=== PATIENT | female | born 1945 | race African-American/Black ===

== ENCOUNTER 2016-09-04 11:30 | Emergency (ER) | payer MEDICARE, OTHER ==
[~2016-09-04] VITALS: Ht 162.6 cm; Wt 66.0 kg
[~2016-09-04 11:30] MED LIST: ASPI81TA82 PO; BENI40TA31 PO; EZET10 PO; METO25 PO; TAB-TAB PO; VITA200017 PO
[2016-09-04 11:32] VITALS: BP 149/82; PULSE 82; RESP 14; TEMP 97.5; O2SAT 96
[2016-09-04] MEDS ORDERED: SODIUM CHLORIDE 0.9% FLUSH 5 ML FLUSH IVF PRN (12:00)
[2016-09-04] MEDS ORDERED: METO25TA3 PO ×2 (12:03→12:04)
[2016-09-04] MEDS ORDERED: BENI40TA7 PO (12:03)
[2016-09-04] MEDS ORDERED: MULT1CHW70 (12:05)
[2016-09-04] MEDS ORDERED: ZETI10TA5 PO (12:05)
[2016-09-04] MEDS ORDERED: FERR1TAB58 PO (12:06)
[2016-09-04] MEDS ORDERED: VITA100064 PO (12:06)
[2016-09-04 12:07] VITALS: O2SAT 97
--- NOTE | 2016-09-04 12:36 | PD ---
HPI Chief Complaint: Syncope/Near-Syncope Time Seen by Provider: 12:29 Travel History International Travel<30 days: No Contact w/Intl Traveler<30days: No Traveled to known affect area: No History of Present Illness HPI 70-year-old female with history of brain tumors status post resection currently following up with [facility] in [place], hypertension, high cholesterol, presents to the ER today sent in by Dr. Blanco. Patient states that she has been having several days' history of dizziness and unsteadiness, had a near syncopal episode in the bathroom today. She denies any chest pains, shortness of breath, fevers, vomiting, or other symptoms. She states she has some underlying headache several days ago which she has had before. She states that she had talked to [facility] in [place] and was told that she should come to see them but that she needed cardiac clearance. Dr. Blanco would be the one to give her cardiac clearance and had told her to come to the ER to be evaluated for cardiac issues. Modifying Factors: None Associated Signs & Symptoms: Dizziness, unsteadiness, near-syncope Risk Factors: History of brain tumor PFSH Past Medical History Hx Anticoagulant Therapy: Yes Heart Rhythm Problems: No Cancer: No Cardiac Catheterization: No Cardiovascular Problems: Yes High Cholesterol: Yes Congestive Heart Failure: No Diabetes: No Diminished Hearing: Yes (right ear) Endocrine: No Genitourinary: No Hypertension: Yes Immune Disorder: No Implanted Vascular Access Dvce: Yes Musculoskeletal: No Neurologic: No Reproductive: No Respiratory: No Menopausal: Yes Past Surgical History Appendectomy: Yes Body Medical Devices: R VOCAL CORD Coronary Artery Bypass Graft: No Eye Surgery: Yes (lasik eye surgery) Hysterectomy: Yes Joint Replacement: Yes (right knee) Neurologic Surgery: Yes (GROWTH ON NECK INTO HEAD REMOVED) Pacemaker: No Other Surgery: Yes (glomerus tumor removal brain, voice implant and right inner ear) Family History Family Myocardial Infarction: Yes Social History Alcohol Use: No Tobacco Use: No Substance Use: No Allergies-Medications (Allergen,Severity, Reaction): Coded Allergies: No Known Allergies (Unverified , 09/04/16) Reported Meds & Prescriptions Reported Meds & Active Scripts Active Reported Vitamin D (Cholecalciferol) 1,000 Unit Tab 2,000 Units PO DAILY Iron (Ferrous Sulfate) 50 Mg Tab 65 Mg PO DAILY Multivitamin Adult (Multiple Vitamins W/ Minerals) 1 Chw Chw Zetia (Ezetimibe) 10 Mg Tab 10 Mg PO DAILY Metoprolol Tartrate 25 Mg Tab 25 Mg PO DAILY Metoprolol Tartrate 25 Mg Tab 25 Mg PO DAILY Review of Systems Except as stated in HPI: all other systems reviewed are Neg Physical Exam Narrative GENERAL: Well-nourished, well-developed elderly -[place] female patient in no acute distress at rest. Awake and oriented 3. SKIN: Warm and dry. HEAD: Normocephalic. EYES: No scleral icterus. No injection or drainage. NECK: Supple, trachea midline. CARDIOVASCULAR: Regular rate and rhythm without murmurs, gallops, or rubs. RESPIRATORY: Breath sounds equal bilaterally. No accessory muscle use. GASTROINTESTINAL: Abdomen soft, non-tender, nondistended. MUSCULOSKELETAL: No cyanosis, or edema. BACK: Nontender without obvious deformity. No CVA tenderness. Neuro: Patient has obvious right facial droop. She is able to talk normally. Awake, alert, oriented 3. Moving all 4 extremities. Data Data Last Documented VS Vital Signs Date Time Temp Pulse Resp B/P Pulse Ox O2 Delivery O2 Flow Rate FiO2 09/04/16 12:07 97 Room Air 09/04/16 11:59 64 20 09/04/16 11:32 97.5 149/82 Orders Electrocardiogram (09/04/16 11:59) Complete Blood Count With Diff (09/04/16 11:59) Comprehensive Metabolic Panel (09/04/16 11:59) Magnesium (Mg) (09/04/16 11:59) Ckmb (Isoenzyme) Profile (09/04/16 11:59) Troponin I (09/04/16 11:59) Act Partial Throm Time (Ptt) (09/04/16 11:59) Prothrombin Time / Inr (Pt) (09/04/16 11:59) Chest, Single Ap (09/04/16 11:59) Ct Brain W/O Iv Contrast(Rout) (09/04/16 11:59) Ecg Monitoring (09/04/16 11:59) Iv Access Insert/Monitor (09/04/16 11:59) Oximetry (09/04/16 11:59) Sodium Chloride 0.9% Flush (Ns Flush) (09/04/16 12:00) Urinalysis - C+S If Indicated (09/04/16 12:29) CKMB (09/04/16 12:11) CKMB% (09/04/16 12:11) Labs Laboratory Tests Test 09/04/16 09/04/16 12:11 13:20 White Blood Count 5.4 TH/MM3 Red Blood Count 5.02 MIL/MM3 Hemoglobin 14.8 GM/DL Hematocrit 44.1 % Mean Corpuscular Volume 87.7 FL Mean Corpuscular Hemoglobin 29.4 PG Mean Corpuscular Hemoglobin 33.5 % Concent Red Cell Distribution Width 15.2 % Platelet Count 203 TH/MM3 Mean Platelet Volume 7.8 FL Neutrophils (%) (Auto) 79.7 % Lymphocytes (%) (Auto) 11.0 % Monocytes (%) (Auto) 8.2 % Eosinophils (%) (Auto) 0.4 % Basophils (%) (Auto) 0.7 % Neutrophils # (Auto) 4.3 TH/MM3 Lymphocytes # (Auto) 0.6 TH/MM3 Monocytes # (Auto) 0.4 TH/MM3 Eosinophils # (Auto) 0.0 TH/MM3 Basophils # (Auto) 0.0 TH/MM3 CBC Comment DIFF FINAL Differential Comment Prothrombin Time 10.7 SEC Prothromb Time International 1.0 RATIO Ratio Activated Partial 24.3 SEC Thromboplast Time Sodium Level 139 MEQ/L Potassium Level 4.1 MEQ/L Chloride Level 104 MEQ/L Carbon Dioxide Level 29.0 MEQ/L Anion Gap 6 MEQ/L Blood Urea Nitrogen 8 MG/DL Creatinine 0.68 MG/DL Estimat Glomerular Filtration 103 ML/MIN Rate Random Glucose 90 MG/DL Calcium Level 9.3 MG/DL Magnesium Level 2.3 MG/DL Total Bilirubin 0.4 MG/DL Aspartate Amino Transf 26 U/L (AST/SGOT) Alanine Aminotransferase 28 U/L (ALT/SGPT) Alkaline Phosphatase 70 U/L Total Creatine Kinase 146 U/L Creatine Kinase MB 1.7 NG/ML Troponin I LESS THAN 0.02 NG/ML Total Protein 6.6 GM/DL Albumin 3.5 GM/DL Urine Color LIGHT-YELLOW Urine Turbidity CLEAR Urine pH 6.5 Urine Specific [place] 1.003 Urine Protein NEG mg/dL Urine Glucose (UA) NEG mg/dL Urine Ketones NEG mg/dL Urine Occult Blood NEG Urine Nitrite NEG Urine Bilirubin NEG Urine Urobilinogen LESS THAN 2.0 MG/DL Urine Leukocyte Esterase NEG Urine WBC LESS THAN 1 /hpf Microscopic Urinalysis Comment CULT NOT INDICATED MDM Medical Decision Making Medical Screen Exam Complete: Yes Emergency Medical Condition: Yes Medical Record Reviewed: Yes Interpretation(s) EKG shows NSR, no ST elevation or depression, and no arrhythmias. No significant T-wave inversions. 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 Effacement of the right side of the brainstem and alex from extra-axial mass effect. No evidence of acute infarct, hemorrhage, intra- axial mass or edema. Right-sided mastoidectomy defect presumably from previous tumor resection. Christopher Ramsey MD Chest X-Ray 09/04/16 1153 Signed Impressions: Service Date/Time: Sunday, September 04, 2016 12:27 - CONCLUSION: No acute disease. Christopher Ramsey MD Differential Diagnosis Dizziness, near syncopeacute intracranial processes such as ICH versus enlarging tumor versus dysrhythmias versus metabolic issues versus dehydration Narrative Course Patient is fairly asymptomatic in the ER. She has no new focal neurological deficits according to her. She has no chest pains currently. Lab work did not indicate any significant signs of metabolic issues or dehydration. Her cardiac enzymes are negative. EKG did not show any signs of acute ST-T changes. CT of the brain shows the brain tumor but did not reveal any signs of acute hemorrhage , stroke, or any signs of acute processes. At this point, I have talked to the patient regarding findings and she states that what she really needs is cardiac clearance to go back to [facility] for follow-up with her brain tumor issues. She does not want any treatment for her brain tumors here at this hospital because she already has ongoing follow-up care at [facility]. The findings and the case was discussed with Dr. Blanco who knows her well, and has sent her in today, and he states that she can follow-up in his office on the for further clearance. I have relayed the findings and Dr. Blanco recommendation with the patient. She states understanding and is comfortable with following up as an outpatient. She should return for any worsening in symptoms. Diagnosis Primary Impression: Near syncope Referrals: Kenneth Blanco MD Disposition: 01 DISCHARGE HOME Condition: Stable Jesus King MD Sep 04, 2016 12:36
[2016-09-04 12:45] LABS: AUTOMATED NEUTROPHIL # 4.3 TH/MM3 (1.8-7.7); BASOPHIL % 0.7 % (0.0-2.0); EOSINOPHIL % 0.4 % (0.0-4.0); HEMATOCRIT 44.1 % (35.0-46.0); HEMO FLAGS DIFF FINAL; LYMPHOCYTE # 0.6 TH/MM3 (1.0-4.8); MEAN CELL VOLUME 87.7 FL (80.0-100.0); MEAN CORPUSCULAR HEMOGLOBIN 29.4 PG (27.0-34.0); MEAN CORPUSCULAR HGB CONC 33.5 % (32.0-36.0); MONO % 8.2 % (0.0-8.0); NEUT % 79.7 % (16.0-70.0); PLATELET COUNT 203 TH/MM3 (150-450); RED BLOOD COUNT 5.02 MIL/MM3 (4.00-5.30); RED CELL DISTRIBUTION WIDTH 15.2 % (11.6-17.2); WHITE BLOOD COUNT 5.4 TH/MM3 (4.0-11.0)
--- NOTE | 2016-09-04 13:17 | RADRPT ---
EXAM DATE/TIME: 09/04/2016 12:40 [facility] COMPARISON: No previous studies available for comparison. INDICATIONS : Syncopal episode. RADIATION DOSE: 56.35 CTDIvol (mGy) MEDICAL HISTORY : Hypertension. Cardiovascular disease Brain tumor. SURGICAL HISTORY : None. ENCOUNTER: Initial ACUITY: 1 day PAIN SCALE: 0/10 LOCATION: cranial TECHNIQUE: Multiple contiguous axial images were obtained of the head. Using automated exposure control and adj ustment of the mA and/or kV according to patient size, radiation dose was kept as low as reasonably a chievable to obtain optimal diagnostic quality images. FINDINGS: A large bony destructive mass containing dense calcific deposits is identified at the base of the sku ll on the right eroding and destroying the right temporal bone and partially eroding the clivus.. The re is intracranial extension of mass into the posterior fossa which extends superiorly along the cere bellopontine angle cistern. A large mastoidectomy defect which appears postsurgical is noted. The nichole tructive mass measures 5.8 x 2.9 cm in cross-sectional diameter. The jugular foramen is completely de stroyed by the mass. The brachium pontis is effaced. There is no evidence of significant intra-axial edema. There is no sh ift of midline structures. The cerebral hemispheres are unremarkable. 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 Effacement of the right side of the brainstem and alex from extra-axial mass effect. No evidence of acute infarct, hemorrhage, intra-axial mass or edema. Right-sided mastoidectomy defect presumably from previous tumor resection. Christopher Ramsey MD on September 04, 2016 at 13:04 Board Certified Radiologist. This report was verified electronically.
[2016-09-04 13:21] LABS: PROTHROMBIN TIME - PATIENT 10.7 SEC (9.8-11.6)
[2016-09-04 13:24] LABS: APTT (PATIENT) 24.3 SEC (24.3-30.1)
--- NOTE | 2016-09-04 13:41 | RADRPT ---
EXAM DATE/TIME: 09/04/2016 12:27 [facility] COMPARISON: No previous studies available for comparison. INDICATIONS : Confusion with shortness of breath MEDICAL HISTORY : Brain CA SURGICAL HISTORY : None. ENCOUNTER: Initial ACUITY: 2 days PAIN SCORE: 0/10 LOCATION: Bilateral chest FINDINGS: A single view of the chest demonstrates the lungs to be symmetrically aerated without evidence of mas s, infiltrate or effusion. The cardiomediastinal contours are unremarkable. Osseous structures are intact. CONCLUSION: No acute disease. Christopher Ramsey MD on September 04, 2016 at 13:39 Board Certified Radiologist. This report was verified electronically.
[2016-09-04 13:46] LABS: BLOOD, URINE NEG (NEG); GLUCOSE,URINE NEG (NEG); KETONE, URINE NEG (NEG); NITRITE,URINE NEG (NEG); PH, URINE 6.5 (5.0-8.5); URINE COLOR LIGHT-YELLOW (YELLW/STRAW)
[2016-09-04 13:47] LABS: COMMENT (UR) CULT NOT INDICATED; CULTURE IF INDICATED CULT NOT INDICATED
[2016-09-04 15:02] LABS: ALKALINE PHOSPHATASE 70 U/L (45-117); ALT (GPT) 28 U/L (10-53); ANION GAP 6 MEQ/L (5-15); AST (GOT) 26 U/L (15-37); BLOOD UREA NITROGEN 8 MG/DL (7-18); CHLORIDE 104 MEQ/L (98-107); CREATINE KINASE 146 U/L (26-192); GLOMERULAR FILTRATION RATE 103 ML/MIN (>89); MAGNESIUM 2.3 MG/DL (1.5-2.5); POTASSIUM 4.1 MEQ/L (3.5-5.1); SODIUM (NA) 139 MEQ/L (136-145); TOTAL BILIRUBIN ADULT 0.4 MG/DL (0.2-1.0)
[2016-09-04 15:14] LABS: CKMB 1.7 NG/ML (0.5-3.6)
--- NOTE | 2016-09-05 14:00 | EKG ---
Date Performed: 09/04/2016 Time Performed: 11:50:25 PTAGE: 70 years EKG: Sinus rhythm MARKED LEFT AXIS DEVIATION PATTERN CONSISTENT WITH PULMONARY DISEASE NONSPECIFIC T-WAVE ABNORMALITY ABNORMAL ECG Since PREVIOUS TRACING , no significant change noted DOCTOR: Edwardo Gomez Interpretating Date/Time 09/05/2016 13:56:59
== END 2016-09-04 15:56 | disposition home or self-care (01) ==
LOC: NEPC 11:30
DX: R42 Dizziness and giddiness (principal); I10 Essential (primary) hypertension; R94.31 Abnormal electrocardiogram [ECG] [EKG]; Z79.01 Long term (current) use of anticoagulants
CPT/HCPCS: 70450; 71010; 80053; 81001; 82550; 82552; 83735; 84484; 85025; 85610; 85730; 93005